=== PATIENT | female | born 1980 ===

== ENCOUNTER 2017-03-25 15:05 | Emergency (ER) | payer OTHER ==
[2017-03-25 15:11] VITALS: BP 130/84; PULSE 99; RESP 19; TEMP 98.2; O2SAT 97
--- NOTE | 2017-03-25 16:33 | ED PDOC ---
HPI: General Adult Time Seen by Provider: 03/25/17 15:25 Chief Complaint (Nursing): Flu-like Symptoms History Per: Patient History/Exam Limitations: no limitations Onset/Duration Of Symptoms: Days (3) Current Symptoms Are (Timing): Still Present Severity: Mild Additional Complaint(s): 36 year old female with no PMH presents to the ED with complaints of subjective fever, malaise, generalized headache and bodyaches for 3 days. She took Tylenol with minimal relief. Denies any vision changes, dizziness, abdominal pain, vomiting or diarrhea. Past Medical History Reviewed: Historical Data, Nursing Documentation, Vital Signs Vital Signs: Last Vital Signs Temp 98.2 F 03/25/17 15:11 Pulse 99 H 03/25/17 15:11 Resp 19 03/25/17 15:11 BP 130/84 03/25/17 15:11 Pulse Ox 97 03/25/17 17:31 - Medical History PMH: No Chronic Diseases - Surgical History Surgical History: No Surg Hx - Family History Family History: States: Unknown Family Hx - Living Arrangements Living Arrangements: With Family - Social History Current smoker - smoking cessation education provided: No Alcohol: None Drugs: Denies - Home Medications Home Medications: Ambulatory Orders Medication Instructions Recorded Ciprofloxacin [Cipro] 1 tab PO BID #14 tab 03/25/17 - Allergies Allergies/Adverse Reactions: Allergies Allergy/AdvReac Type Severity Reaction Status Date / Time No Known Allergies Allergy Verified 03/25/17 15:08 Review of Systems Constitutional: Positive for: Fever (subjective) Eyes: Negative for: Vision Change, Redness ENT: Negative for: Ear Pain, Nose Congestion, Throat Pain Cardiovascular: Negative for: Chest Pain, Palpitations Respiratory: Negative for: Cough, Shortness of Breath Gastrointestinal: Negative for: Vomiting, Abdominal Pain, Diarrhea, Constipation Genitourinary Female: Negative for: Dysuria, Frequency Musculoskeletal: Negative for: Neck Pain Skin: Negative for: Rash Neurological: Positive for: Headache. Negative for: Weakness, Numbness, Dizziness Physical Exam - Reviewed Nursing Documentation Reviewed: Yes Vital Signs Reviewed: Yes - Physical Exam Appears: Positive for: Well, Non-toxic, No Acute Distress Head Exam: Positive for: ATRAUMATIC, NORMAL INSPECTION, NORMOCEPHALIC Skin: Positive for: Warm, Dry Eye Exam: Positive for: Normal appearance, EOMI, PERRL ENT: Positive for: Normal ENT Inspection, Pharynx Is (pink), TM Is/Are (pearly) , Hearing Is (intact) Neck: Positive for: Normal, Painless ROM Cardiovascular/Chest: Positive for: Regular Rate, Rhythm, Chest Non Tender. Negative for: Murmur Respiratory: Positive for: Normal Breath Sounds. Negative for: Rales, Wheezing , Respiratory Distress Gastrointestinal/Abdominal: Positive for: Bowel Sounds (active), Soft. Negative for: Tenderness, Mass, Distended, Guarding Back: Positive for: Normal Inspection Extremity: Positive for: Normal ROM. Negative for: Tenderness, Deformity, Swelling Neurologic/Psych: Positive for: Alert, machine sewer II-XII (grossly intact), Oriented, Mood/Affect (normal), Gait (stead) - Laboratory Results Urine POC: Negative Urine dip results: Positive for: Leukocyte Esterase (small), Blood (moderate), Nitrate (posiive) - ECG O2 Sat by Pulse Oximetry: 97 Medical Decision Making Medical Decision Making: Impression: fever, headache, bodyaches, likely viral sx Plan: * Influenza * Urine dip * Tylenol Progress: Udip shows positive nitrates. Will send urine culture and Cipro PO ordered. Flu was negative Re-Eval: Patient remained afebrile alert and oriented with stable vital signs during ER evaluation. Discussed results with patient, and will send home with antibiotic. Patient feels comfortable going home and will be discharged. Patient given follow up instructions. Instructed to return to ER if symptoms worsen or new symptoms arise Disposition - Clinical Impression Clinical Impression: UTI (urinary tract infection) - Patient ED Disposition Is Patient to be Admitted: No Counseled Patient/Family Regarding: Studies Performed, Diagnosis, Need For Followup, Rx Given - Disposition Referrals: [facility] [Outside] formerly [facility] [Outside] Disposition: Routine/Home Disposition Time: 17:42 Condition: STABLE Additional Instructions: Comobabi antibiticos dos veces al da y asegrese de terminar de roma todos los antibiticos. Beber mucho lquido. Por favor, cinda un seguimiento con zavala mdico primario o clnica para recibir m s atencin. Regrese al departamento de emergencia en cualquier momento si los s ntomas persisten o empeoran. Prescriptions: Ciprofloxacin [Cipro] 1 tab PO BID #14 tab Instructions: Urinary Tract Infection in Women (DC) Forms: [employer] (Georgian) Print Language: GIBRALTARIAN - POA Present On Arrival: Carlos
== END 2017-03-25 18:18 | disposition home or self-care (01) ==
LOC: H.ER 15:05
DX: N39.0 Urinary tract infection, site not specified (principal); B34.9 Viral infection, unspecified